=== PATIENT | female | born 1950 | race African-American/Black ===

== ENCOUNTER 2017-04-22 09:25 | Emergency (ER) | payer MEDICARE, MEDICAID ==
[~2017-04-22] VITALS: Ht 170.2 cm; Wt 84.0 kg
[~2017-04-22 09:25] MED LIST: AMLO5TAB2 PO; CARV25TA PO; GABA300C5 PO; HYDR-3533 PO; LISI40TA PO; MOBI15TA PO; MOME17I EACH NARE; OMEP20TA PO; POTA-243 PO; REST15CA PO; TIZA4CAP3 PO; ZOSTINJ SQ
[2017-04-22 09:28] VITALS: BP 178/89; PULSE 84; RESP 20; TEMP 98.9; O2SAT 98
--- NOTE | 2017-04-22 11:13 | PD ---
HPI Chief Complaint: Edema Time Seen by Provider: 11:12 Travel History International Travel<30 days: No Contact w/Intl Traveler<30days: No Traveled to known affect area: No History of Present Illness HPI 66 YO F with PMH of CHF, HTN presents to the ED for evaluation of "a couple weeks" history of constant, aching, 9/10 pain and edema in the left ankle. Patient can identify no acute injury or recent overuse. No alleviating or exacerbating factors reported. She denies chest pain, calf pain, palpitations, shortness of breath, dyspnea on exertion. She treated by using a OTC pain patch and a warm compress with no improvement. She states that she had similar symptoms in the right ankle that have resolved. She endorses compliance with her daily medications. She is followed by Dr.Susan Olivas. FORMERLY [facility], [facility] Past Medical History Congestive Heart Failure: Yes Diminished Hearing: No GERD: Yes Hypertension: Yes Myocardial Infarction: Yes (2002) Past Surgical History Hysterectomy: Yes Joint Replacement: Yes (BILAT HIP REPLACEMENT) Social History Alcohol Use: No Tobacco Use: Yes (1PK WEEKLY) Substance Use: No Allergies-Medications (Allergen,Severity, Reaction): Coded Allergies: Penicillin (Verified Allergy, Severe, hives, 04/22/17) Reported Meds & Prescriptions Reported Meds & Active Scripts Active Lortab (Hydrocodone-Acetaminophen) 5-325 Mg Tab 1 Tab PO Q6H PRN Reported Lasix (Furosemide) 20 Mg Tab 20 Mg PO BID Mobic (Meloxicam) 15 Mg Tab 15 Mg PO DAILY Klor-Con 10 (Potassium Chloride) 10 Meq Tab 10 Meq PO DAILY Omeprazole 20 Mg Tab 20 Mg PO DAILY Lisinopril 40 Mg Tab 40 Mg PO DAILY Gabapentin 300 Mg Cap 300 Mg PO TID Carvedilol 25 Mg Tab 25 Mg PO BID Amlodipine (Amlodipine Besylate) 5 Mg Tab 5 Mg PO DAILY Review of Systems Except as stated in HPI: all other systems reviewed are Neg Physical Exam Narrative GENERAL: Well-nourished, well-developed AA female in no acute distress. SKIN: Focused skin assessment warm/dry. HEAD: Normocephalic. EYES: No scleral icterus. No injection or drainage. NECK: Supple, trachea midline. No JVD or lymphadenopathy. CARDIOVASCULAR: Regular rate and rhythm without murmurs, gallops, or rubs. RESPIRATORY: Breath sounds clear and equal bilaterally. No accessory muscle use. GASTROINTESTINAL: Abdomen soft, non-tender, nondistended. MUSCULOSKELETAL: No cyanosis. Homans sign negative bilaterally. No right- sided LE edema. FOCUSED LEFT LOWER EXTREMITY EXAM: 2+ DP pulse. Mild edema and tenderness of the ankle joint. Patient retains full, active ROM. Flexion and extension elicits pain. Neurovascularly intact. BACK: Nontender without obvious deformity. No CVA tenderness. Data Data Last Documented VS Vital Signs Date Time Temp Pulse Resp B/P Pulse Ox O2 Delivery O2 Flow Rate FiO2 04/22/17 13:22 77 16 158/74 99 04/22/17 11:17 Room Air 04/22/17 09:28 98.9 Orders Ankle, Complete ([id number]) (04/22/17 11:16) Ice/Cold Pack (04/22/17 11:16) Chest, Single Ap (04/22/17 ) Ketorolac Inj (Toradol Inj) (04/22/17 11:30) Furosemide (Lasix) (04/22/17 13:15) Kasi Bandage (04/22/17 13:09) MDM Medical Decision Making Medical Screen Exam Complete: Yes Emergency Medical Condition: Yes Differential Diagnosis OA versus musculoskeletal pain versus less likely CHF exacerbation versus less likely DVT versus other Narrative Course 66 YO F with PMH of CHF, HTN presents to the ED for evaluation of "a couple weeks" history of constant, aching, 9/10 pain and edema in the left ankle. Patient can identify no acute injury or recent overuse. No alleviating or exacerbating factors reported. She denies chest pain, calf pain, palpitations, shortness of breath, dyspnea on exertion. Patient is hypertensive on presentation. Physical exam reveals a nontoxic-appearing black female in no acute distress. The chest is clear to auscultation bilaterally. There is no appreciable M/R/G. Homans sign negative bilaterally. Left ankle tender and edematous without limitations to ROM or neurovascular compromise. Ice pack was applied. Patient was administered 30 mg Toradol IM. X-ray of the ankle without acute bony injury, chest x-ray congestive failure without consolidation or significant effusion per radiology read. I discussed the results of the workup with the patient. She takes 20 mg Lasix twice a day, endorses compliance with her medications. Patient is oxygenating well, no complaint of shortness of breath. Additional dose of Lasix administered in the ED. Patient instructed to resume at home medications, rest, ice, elevate the extremity, follow-up with Dr. Carballo this week. She indicated understanding of instructions and is agreeable care plan. She is stable and discharged home. Diagnosis Primary Impression: Left ankle pain Qualified Code: M25.572 - Left ankle pain, unspecified chronicity Additional Impression: Leg edema Referrals: Pearl Olivas MD Patient Instructions: General Instructions, Leg Edema (ED) Additional Instructions: Rest, hydrate. Compress, ice, elevate the extremity to improve pain symptoms. Resume daily medications as previously prescribed. Follow-up with Dr. Olivas this week as discussed. Return to the ED for worsening symptoms or any urgent or emergent medical condition. Disposition: 01 DISCHARGE HOME Condition: Stable Amanda Vieyra Apr 22, 2017 11:12
[2017-04-22] MEDS ORDERED: KETOROLAC TROMETHAMINE 60 MG/2 ML (IM) VIAL IM ONE (11:30)
--- NOTE | 2017-04-22 12:21 | RADRPT ---
EXAM DATE/TIME: 04/22/2017 11:42 [facility] COMPARISON: No previous studies available for comparison. INDICATIONS : Left ankle pain and swelling with no trauma. MEDICAL HISTORY : None. SURGICAL HISTORY : None. ENCOUNTER: Initial ACUITY: 1 month PAIN SCORE: 9/10 LOCATION: Left ankle FINDINGS: Marked soft tissue swelling is identified surrounding the left ankle. The ankle joint appears intact without evidence of acute bony trauma. There are no destructive changes. Ankle mortise is well-mainta ined. CONCLUSION: Soft tissue swelling without evidence of fracture or destructive bone changes. Sammy Lambert MD on April 22, 2017 at 12:19 Board Certified Radiologist. This report was verified electronically.
--- NOTE | 2017-04-22 12:41 | RADRPT ---
EXAM DATE/TIME: 04/22/2017 11:48 [facility] COMPARISON: No previous studies available for comparison. INDICATIONS : Lower extremity swelling and shortness of breath. MEDICAL HISTORY : None. SURGICAL HISTORY : None. ENCOUNTER: Initial ACUITY: 1 month PAIN SCORE: 3/10 LOCATION: Bilateral upper chest FINDINGS: There is moderate cardiomegaly with minimal interstitial edema consistent with congestive failure. Th e portion of the bony skeleton visualized is unremarkable. CONCLUSION: Congestive failure without significant effusion or consolidation. Jose Fitzgerald MD FACR on April 22, 2017 at 12:39 Board Certified Radiologist. This report was verified electronically.
[2017-04-22] MEDS ORDERED: FURO1TAB62 PO (13:04)
[2017-04-22] MEDS ORDERED: FUROSEMIDE 20 MG TAB PO ONE (13:15)
[2017-04-22 13:22] VITALS: BP 158/74
== END 2017-04-22 13:38 | disposition home or self-care (01) ==
LOC: NEPD 09:25
DX: M25.572 Pain in left ankle and joints of left foot (principal); R60.9 Edema, unspecified; I10 Essential (primary) hypertension; I11.0 Hypertensive heart disease with heart failure; K21.9 Gastro-esophageal reflux disease without esophagitis; I25.2 Old myocardial infarction; F17.200 Nicotine dependence, unspecified, uncomplicated; Z88.0 Allergy status to penicillin; Z79.899 Other long term (current) drug therapy
CPT/HCPCS: 71010; 73610; 96372; 99284; J1885